=== PATIENT | male | born 1955 | race Caucasian/White ===

== ENCOUNTER 2022-06-19 09:51 | Emergency (ER) | payer MEDICARE, OTHER ==
[2022-06-19] MEDS ORDERED: Ketorolac 30 MG/ML SDV IM ONE (10:05)
[2022-06-19] MEDS ORDERED: Orphenadrine 60 MG/2 ML Inj IM ONE (10:05)
== END 2022-06-19 11:52 | disposition home or self-care (01) ==
LOC: VM.ED 09:51
DX: S46.812A Strain of other muscles, fascia and tendons at shoulder and upper arm level, left arm, initial encounter (principal); I25.10 Atherosclerotic heart disease of native coronary artery without angina pectoris; I10 Essential (primary) hypertension; W18.30XA Fall on same level, unspecified, initial encounter; Y92.009 Unspecified place in unspecified non-institutional (private) residence as the place of occurrence of the external cause
CPT/HCPCS: 96372; 99284; J1885; J2360

== ENCOUNTER 2024-10-11 07:45 | Day surgery (SDC) | payer MEDICARE, OTHER ==
[~2024-10-11 07:45] MED LIST: Brimonidine 0.2% Ophth Soln 5 ML Bottle ONE; Dexamethasone/Neomycin/Polymyxin B Ophth Oint 3.5 GM Tube ONE; Lidocaine 1% 2 ML ONE; Phenyleprhine/Ketorolac 4 ML Vial ONE; Povidone-Iodine 5% Sterile Ophth Soln 30 ML Bottle ONE; Proparacaine 0.5% Ophth Soln 15 ML Bottle ONE; Sodium Chloride 0.9% 10 ML Syringe FLUSH PRN
[2024-10-11] MEDS: Tropicamide 1% Ophth Soln 3 ML Bottle EYERT SCH (08:00)
[2024-10-11] MEDS: Phenylephrine 2.5% Ophth Soln 2 ML Bot EYERT SCH (08:15)
[2024-10-11] MEDS: Cyclopentolate 1% Opth Soln 2 ML Bottle EYERT SCH (08:15)
[2024-10-11] MEDS: Moxifloxacin 0.5% Ophth Soln 3 ML Bottle EYERT ONE ×2 (08:20→09:15)
[2024-10-11] MEDS ORDERED: Midazolam 1 MG/ML 2 ML SDV ONE (08:25)
[2024-10-11] MEDS ORDERED: fentaNYL 100 MCG/2 ML SDV ONE (08:25)
[2024-10-11] MEDS: Lidocaine 1% PF 2 ML SDV INFILT ONE (09:16)
[2024-10-11] MEDS: Balanced Salt Solution Ophth Irrig 500 ML Bottle IOCULAR ONE (09:16)
[2024-10-11] MEDS: Phenyleprhine/Ketorolac 4 ML Vial IO ONE (09:16)
[2024-10-11] MEDS: Chondroitin Sulfate/Hyaluronate Sodium Ophth Inj 0.5 ML Syringe IOCULAR ONE (09:17)
[2024-10-11] MEDS: Brimonidine 0.2% Ophth Soln 5 ML Bottle EYERT ONE (09:17)
[2024-10-11] MEDS: Dexamethasone/Neomycin/Polymyxin B Ophth Oint 3.5 GM Tube EYERT ONE (09:18)
[2024-10-11] MEDS: Povidone-Iodine 5% Sterile Ophth Soln 30 ML Bottle EYERT ONE (09:19)
[2024-10-11] MEDS ORDERED: ceFAZolin 500 MG Vial ONE (09:20)
[2024-10-11] MEDS: acetaZOLAMIDE 500 MG Cap.ER PO ONE (09:38)
== END 2024-10-11 09:58 | disposition home or self-care (01) ==
LOC: VM.SDS 07:45
PROVIDERS: ATTEND Ophthalmology
DX: H25.811 Combined forms of age-related cataract, right eye (principal); I10 Essential (primary) hypertension; N52.9 Male erectile dysfunction, unspecified; I25.10 Atherosclerotic heart disease of native coronary artery without angina pectoris; Z88.0 Allergy status to penicillin; Z79.899 Other long term (current) drug therapy
CPT/HCPCS: 66984; A9270; J0690; J1097; J2003; J2250; J3010; J3490